=== PATIENT | male | born 1955 | race Caucasian/White ===

== ENCOUNTER 2021-03-21 00:43 | Emergency (ER) | payer OTHER ==
[~2021-03-21] VITALS: Ht 172.7 cm; Wt 91.8 kg
[2021-03-21] MEDS ORDERED: ASPI81CH33 PO (01:09)
[2021-03-21] MEDS ORDERED: HYDR12.55 PO (01:09)
[2021-03-21] MEDS ORDERED: AMLO5CAP45 PO (01:09)
[2021-03-21] MEDS ORDERED: METO1TAB7 PO (01:09)
[2021-03-21] MEDS ORDERED: SILD20TA50 PO (01:09)
[2021-03-21] MEDS ORDERED: ASCO500T PO (01:09)
[2021-03-21] MEDS ORDERED: OMEP-218 PO (01:09)
[2021-03-21] MEDS ORDERED: ROSU10TA6 PO (01:09)
[2021-03-21] MEDS ORDERED: FOLI800C PO (01:09)
[2021-03-21] MEDS ORDERED: FLOM0.4C39 PO (01:09)
--- NOTE | 2021-03-21 02:17 | REPVR ---
PROCEDURE INFORMATION: Exam: XR Left Wrist Exam date and time: 03/21/2021 1:42 AM Age: 66 years old Clinical indication: Pain; Wrist; Left; Additional info: Injury TECHNIQUE: Imaging protocol: XR Left wrist. Views: 3 or more views. COMPARISON: No relevant prior studies available. FINDINGS: Bones/joints: Acute comminuted, transverse fracture of the distal radial metaphysis. Mild degenerative changes of the 1st carpometacarpal joint. There is 33 degree dorsal angulation of the distal fracture fragment. Fracture is predominantly extra-articular, however, articular extension cannot be excluded. There are multiple displaced fracture fragments dorsal to the fracture. No dislocation. Soft tissues: Soft tissue swelling around the wrist. IMPRESSION: Acute comminuted, transverse fracture of the distal radius. Electronically signed by: Jaswinder Samuels On 03/21/2021 02:16:37 AM
--- NOTE | 2021-03-21 02:17 | REPVR ---
PROCEDURE INFORMATION: Exam: XR Left Forearm Exam date and time: 03/21/2021 1:42 AM Age: 66 years old Clinical indication: Pain; Lower or forearm; Left; Additional info: Fell and braced his fall with left arm TECHNIQUE: Imaging protocol: XR Left forearm. Views: 2 views. COMPARISON: No relevant prior studies available. FINDINGS: Bones/joints: Acute transverse fracture of the distal radial metaphysis. No acute fracture otherwise. No dislocation. Soft tissues: Normal. IMPRESSION: Acute transverse fracture of the distal radial metaphysis. See XR wrist report. Electronically signed by: Jaswinder Samuels On 03/21/2021 02:17:34 AM
[2021-03-21] MEDS ORDERED: LIDOCAINE 2% MDV 20ML VIAL As Ordered ONE (03:13)
[2021-03-21] MEDS ORDERED: LIDOCAINE 2% MDV 20ML VIAL SC ONE (03:15)
[2021-03-21] MEDS ORDERED: BUPIVACAINE HCL 0.5% 10ML VIAL As Ordered ONE (03:15)
[2021-03-21] MEDS ORDERED: BUPIVACAINE HCL 0.5% 10ML VIAL SC ONE (03:20)
[2021-03-21] MEDS ORDERED: NORCO 5/325MG TABLET (BULK FOR ED) PO ONE (04:05)
--- NOTE | 2021-03-21 04:10 | REPVR ---
PROCEDURE INFORMATION: Exam: CT Left Upper Extremity Without Contrast, Wrist Exam date and time: 03/21/2021 3:51 AM Age: 66 years old Clinical indication: Other: Post redux; Additional info: Request of Dr. Piña post reduction TECHNIQUE: Imaging protocol: CT of the Left upper extremity without contrast was performed. Exam focused on the wrist. Radiation optimization: All CT scans at this facility use at least one of these dose optimization techniques: automated exposure control; mA and/or kV adjustment per patient size (includes targeted exams where dose is matched to clinical indication); or iterative reconstruction. COMPARISON: XA Wrist, complete LEFT 03/21/2021 2:22 AM FINDINGS: Bones/joints: Acute mildly displaced fracture of the ulnar styloid. Acute nondisplaced, transverse, extra-articular, comminuted fracture of the distal radial metaphysis. Displacement and angulation has been reduced from the prior study. No dislocation. Soft tissues: Nor soft tissue swelling in the hand and wrist. IMPRESSION: 1. Status post reduction of the distal radial metaphysis. 2. Acute mildly displaced fracture of the ulnar styloid. Electronically signed by: Jaswinder Samuels On 03/21/2021 04:09:22 AM
[2021-03-21 04:41] VITALS: BP 140/78
--- NOTE | 2021-03-21 08:03 | REP ---
INDICATION: reduction COMPARISON: 03/21/2021 TECHNIQUE: Intraoperative fluoroscopic imaging using portable C-arm technique. FINDINGS: Findings consistent with closed reduction for distal radial metaphyseal fracture. Total fluoroscopic time 36.2 seconds. IMPRESSION: Satisfactory closed reduction period <Electronically signed by Joey Ennis > 03/21/21 [id number]
--- NOTE | 2021-03-21 09:41 | ER ---
ER CONSULTATION DATE: 03/21/2021 CONSULTING SERVICE: Orthopedic surgery. CONSULTING PHYSICIAN: Kenton Piña MD. 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 He sustained a closed distal radius fracture, which was most likely extra-articular. The patient had left upper extremity pain and obvious deformity about the left distal radius. He presented to [facility] for further evaluation and treatment. Of note, he was en route from [place], [place], and he was passing through. Orthopedics was consulted, I saw the patient, and treated appropriately. PAST MEDICAL HISTORY: Hypertension. PAST SURGICAL HISTORY: Left thumb revision amputation. ALLERGIES: PENICILLIN itching. CURRENT MEDICATIONS: Hypertension medications unknown exact medications. SOCIAL HISTORY: Former smoker ten years prior. Social drinker. Non-IV drug user. REVIEW OF SYSTEMS: 14-point review of systems was negative unless is otherwise described in the HPI above. PHYSICAL EXAMINATION: Alert and oriented to person, time, and place. Left forearm with obvious deformity about the distal radius with mild edema and ecchymosis. The patient had 5/5 motor strength to the musculocutaneous, axillary, radial, median, and ulnar nerve distributions. He had sensation intact to light touch to the musculocutaneous, axillary, radial, median, and ulnar nerves. The patient had a 2+ radial and ulnar pulse. Brisk capillary refill to the digits. IMAGING DATA: Radiographs demonstrate extra-articular fracture with dorsal displacement approximately 1 cm proximal to the wrist joint. There was no appreciated ulnar fracture. On the radiograph, it did not appear to be intra-articular, however, CT scan is pending. IMPRESSION: This is a 66-year-old male with a closed left distal radius fracture requiring closed reduction and splinting. PLAN: At this point in time given the patient's presentation, he was closed reduced under a local hematoma block using mini-fluoroscopy. After the reduction, he had restored radial height, inclination, and volar tilt. I placed him in a well-padded sugar-tong splint with a 3-point mold. The patient should transition to a short arm cast after his CT scan in ten days for nonoperative treatment. However, CT scan may indicate him for surgery if it is intra-articular and the patient requests surgery; however, I do believe he will likely manage with nonoperative treatment. This would be six weeks with nonweightbearing to the left wrist pending CT evaluation.
== END 2021-03-21 04:41 | disposition home or self-care (01) ==
LOC: M ED 00:43
DX: S52.352A Displaced comminuted fracture of shaft of radius, left arm, initial encounter for closed fracture (principal); W17.89XA Other fall from one level to another, initial encounter; Y92.59 Other trade areas as the place of occurrence of the external cause; Y93.89 Activity, other specified; Y99.0 Civilian activity done for income or pay; J44.9 Chronic obstructive pulmonary disease, unspecified; I10 Essential (primary) hypertension; G47.33 Obstructive sleep apnea (adult) (pediatric); E78.5 Hyperlipidemia, unspecified; Z79.82 Long term (current) use of aspirin; Z79.899 Other long term (current) drug therapy; Z87.891 Personal history of nicotine dependence